=== PATIENT | female | born 1970 | race Caucasian/White ===

== ENCOUNTER 2016-12-15 21:29 | Emergency (ER) | payer MEDICARE, MEDICAID ==
[~2016-12-15] VITALS: Ht 142.2 cm; Wt 54.5 kg
[2016-12-15] MEDS ORDERED: ALBUTEROL/IPRATROPIUM 3MG-0.5MG/3ML (DUONEB) NEB VIAL INH ONE (21:45)
[2016-12-15] MEDS ORDERED: methylPREDNISolone 80 MG/ML (DEPO MEDROL) VIAL IM ONE (21:45)
[2016-12-15 23:02] LABS: BASOPHILS % (AUTO) 1 % (0-2); EOSINOPHILS # (AUTO) 0.7 10^3uL; EOSINOPHILS % (AUTO) 6 % (0-4); LYMPHOCYTES # (AUTO) 4.2 X10^3; MEAN CORPUSCULAR HGB CONC 33.4 g/dL (31.0-37.0); MEAN CORPUSCULAR VOLUME 87 FL (80-100); MEAN PLATELET VOLUME 10.2 FL (6.0-9.5); MONOCYTES # (AUTO) 1.2 X10^3; MONOCYTES % (AUTO) 9 % (3-11); NEUTROPHILS % (AUTO) 53 % (51-67); PLATELET COUNT 294 10^3uL (150-450); WHITE BLOOD COUNT 13.18 10^3uL (4.0-11.0)
[2016-12-15 23:10] LABS: ANION GAP 16.2 MEQ/L (3-15)
[2016-12-15] MEDS ORDERED: ALBUTEROL INH ONE (23:25)
[2016-12-15] MEDS ORDERED: IPRATROPIUM INH ONE (23:25)
[2016-12-15] MEDS ORDERED: AZITHROMYCIN 250 MG TAB (ZITHROMAX) PO ONE (23:25)
[2016-12-15 23:36] VITALS: BP 109/57
== END 2016-12-15 23:35 | disposition home or self-care (01) ==
LOC: ED 21:30
DX: J45.901 Unspecified asthma with (acute) exacerbation (principal)
CPT/HCPCS: 36415; 71020; 80048; 85025; 94640; 96372; 99282; A9270; J1040; 99283